=== PATIENT | female | born 1960 | race Two or more races ===

== ENCOUNTER 2016-03-30 06:35 | Emergency (ER) | payer OTHER ==
[~2016-03-30] VITALS: Ht 160 cm; Wt 116.0 kg
[~2016-03-30 06:35] MED LIST: AMLO-147 PO; CYCL-319 PO; ERGO500014 PO; IBUP-1542 PO; LIRA0.6P2 SQ; LISI20TA11 PO; MELO-110 PO; METF-382 PO; METO-448 PO; PANT40TA3 PO; TRAM-40 PO; ZOLP5TAB6 PO
[2016-03-30 06:36] VITALS: Ht 160 cm; Wt 116.0 kg
[2016-03-30] MEDS ORDERED: KETOROLAC 60 MG INJ IM STA (07:28)
[2016-03-30] MEDS ORDERED: HYDROCODONE/APAP (10/325) TAB PO ONE (07:30)
--- NOTE | 2016-03-30 08:44 | RADRPT ---
PROCEDURE: XR Hip. CLINICAL INDICATION: Bilateral hip pain TECHNIQUE: AP and frog lateral views of the bilateral hips were performed. Frontal view of the pel vis was also performed. COMPARISON: CT of the abdomen and pelvis dated August 29, 2015 FINDINGS: There is no radiographic evidence of acute fracture. Hip joint spaces are preserved. Limited evalu ation of the sacroiliac joints demonstrates mild degenerative changes. The soft tissues appear celso sly unremarkable. IMPRESSION: No radiographic evidence of acute osseous abnormality or significant degenerative changes of the hip s. RPTAT: UU .Jean-Paul Gamez MD, Date Time Electronically viewed and signed by .Jean-Paul Gamez MD, on 03/30/2016 08:43 .K/
[2016-03-30] MEDS ORDERED: IBUP800T25 PO (08:54)
[2016-03-30] MEDS ORDERED: HYDR-902 PO (08:54)
[2016-03-30] MEDS ORDERED: CYCL-319 PO (08:54)
--- NOTE | 2016-03-30 08:58 | ERD ---
ER Documentation Chief Complaint Date/Time DATE: 03/30/16 TIME: 08:55 Chief Complaint right hip pain rad leg x 10 days HPI Patient is a 35-year-old female who presents with right-sided hip pain that radiates to her right lower extremity she has had for 10 days. She takes tramadol at home and this helps a little bit temporarily however the pain comes back. She is ambulatory. Denies any numbness or tingling. She does have a history of sciatica and this feels similar. Denies any urinary symptoms. Denies fever. Denies any bowel or bladder incontinence. Denies saddle anesthesia. ROS All systems reviewed and are negative except as per history of present illness. Medications Home Meds Active Scripts Hydrocodone/Acetaminophen ([place] 10-325 Tablet) 1 Each Tablet, 1 TAB PO Q6H Y for PAIN, #20 TAB Prov:GARCIA العراقي PA-C 03/30/16 Ibuprofen* (Motrin*) 800 Mg Tab, 800 MG PO Q6H Y for PAIN AND OR ELEVATED TEMP, #30 TAB Prov:GARCIA العراقي PA-C 03/30/16 Cyclobenzaprine Hcl* (Cyclobenzaprine Hcl*) 10 Mg Tablet, 10 MG PO TID, #20 TAB Prov:GARCIA العراقي PA-C 03/30/16 Cyclobenzaprine Hcl* (Cyclobenzaprine Hcl*) 10 Mg Tablet, 10 MG PO TID for MUSCLE SPASMS, #15 TAB Prov:KARLY WITT MD 08/29/15 Ibuprofen* (Ibuprofen*) 600 Mg Tablet, 600 MG PO Q8 for PAIN AND/OR INFLAMMATION , #30 TAB Prov:KARLY WITT MD 08/29/15 Reported Medications Tramadol Hcl* (Ultram*) 50 Mg Tablet, 50 MG PO TID Y for PAIN, TAB 08/29/15 Meloxicam* (Mobic*) 15 Mg Tablet, 15 MG PO DAILY, #30 TAB 08/29/15 Liraglutide (Victoza 3-Darshan) 0.6 Mg/0.1 Ml Pen.injctr, 1.8 MG SQ DAILY, SYR 08/29/15 Pantoprazole* (Protonix*) 40 Mg Tablet.dr, 40 MG PO DAILY, TAB 08/29/15 Zolpidem Tartrate* (Zolpidem Tartrate*) 5 Mg Tablet, 5 MG PO QHS Y for INSOMNIA , #30 TAB 08/29/15 Ergocalciferol* (Drisdol* (Vitamin D2)) 50,000 Unit Capsule, 16418 UNIT PO Q7D, CAP 08/29/15 Lisinopril* (Lisinopril*) 20 Mg Tablet, 20 MG PO DAILY, #30 TAB 08/29/15 Amlodipine Besylate* (Amlodipine Besylate*) 10 Mg Tablet, 10 MG PO DAILY, #30 TAB 08/29/15 Metoprolol Tartrate* (Lopressor*) 25 Mg Tab, 25 MG PO BID, #60 TAB 08/29/15 Metformin Hcl* (Metformin Hcl*) 500 Mg Tablet, 500 MG PO WITH BREAKFAST DINNE, # 30 TAB 08/29/15 Allergies Allergies: Coded Allergies: Penicillins (Verified Allergy, Mild, RASH, 08/29/15) PMhx/Soc History of Surgery: Yes (Cholescystectomy) Anesthesia Reaction: No Hx Neurological Disorder: Yes Hx Respiratory Disorders: Yes Hx Cardiac Disorders: Yes Hx Psychiatric Problems: No Hx Miscellaneous Medical Probl: Yes (HTN, DM) Hx Alcohol Use: No Hx Substance Use: No Hx Tobacco Use: No Smoking Status: Never smoker FmHx Family History: No diabetes Physical Exam Vitals Vital Signs Date Time Temp Pulse Resp B/P Pulse Ox O2 Delivery O2 Flow Rate FiO2 03/30/16 06:36 97.8 77 18 149/84 99 Physical Exam General: well developed, well nourished, alert, nontoxic, no distress Head: normocephalic, atraumatic Neck: Supple, nontender, no lymphadenopathy, no midline tenderness Respiratory: Clear to auscaultation bilaterally, speaks in full sentences, no use of accesory muscles or labored breathing, no rales, ronchi, or wheezing Cardiovascular: RRR, No murmurs Back: no midline tenderness, no step offs or bony abnormalities, sensation to light touch in tact Extremities: moving all extremities normally, normal gait, no edema Results 24 hrs Current Medications Medications (Trade) Dose Ordered Sig/Morales Route PRN Reason Start Time Stop Time Status Last Admin Dose Admin Ketorolac Tromethamine (Toradol) 60 mg ONCE STAT IM 03/30/16 07:28 03/30/16 07:29 DC 03/30/16 07:40 Acetaminophen/ Hydrocodone Bitart ([place]ks (10/325)) 1 tab ONCE ONCE PO 03/30/16 07:30 03/30/16 07:31 DC 03/30/16 07:39 Procedures/MDM Patient is a 55-year-old female who presents with back and hip pain and radiates up her right lower extremity. She is ambulatory and neurovascular intact. She has no bowel or bladder incontinence or saddle anesthesia. She has had sciatica in the past and this most likely a flareup of sciatica. X-rays of the hips were unremarkable. She was given Toradol and Sparks with improvement of her symptoms and she was discharged with ibuprofen, Sparks, Flexeril, and copies of her radiology reports she did follow up with her primary care doctor. Recommended this patient follow up with her primary care doctor within 48 hours or return to the emergency room for any worsening of symptoms. However this time I do believe there is suitable for outpatient management. I answered all their questions and they agreed with the plan and were discharged home. Departure Diagnosis: Primary Impression: Sciatica Condition: Stable Patient Instructions: Understanding Sciatica, Back Pain W/ Sciatica Additional Instructions: Call your primary care doctor TOMORROW for an appointment during the next 1-2 days.See the doctor sooner or return here if your condition worsens before your appointment time. GARCIA العراقي PA-C Mar 30, 2016 08:58
[2016-03-30 09:20] VITALS: BP 132/78; PULSE 78; RESP 18; TEMP 98.3
== END 2016-03-30 09:29 | disposition home or self-care (01) ==
LOC: FTE 06:35
DX: M54.31 Sciatica, right side (principal); I10 Essential (primary) hypertension; E11.9 Type 2 diabetes mellitus without complications; Z79.84 Long term (current) use of oral hypoglycemic drugs
CPT/HCPCS: 73520; 96372; J1885; Z7502; Z7610

== ENCOUNTER 2016-10-23 05:48 | Emergency (ER) | payer OTHER ==
[~2016-10-23] VITALS: Ht 162.6 cm; Wt 110.5 kg
[~2016-10-23 05:48] MED LIST changes: +HYDR-902 PO; +IBUP800T25 PO; -METF-382 PO; +METF500T4 PO; -ZOLP5TAB6 PO; +ZOLP5TAB7 PO
[2016-10-23 05:52] VITALS: Ht 162.6 cm; Wt 110.5 kg
--- NOTE | 2016-10-23 06:28 | ERD ---
ER Documentation Chief Complaint Date/Time DATE: 10/23/16 TIME: 06:26 Chief Complaint painful urination x 1 day HPI 56 yo female with a history of diabetes, presents with painful urination and urgency for the past 1 day. She describes burning when she urinates, with intermittent hematuria. She has not had any fevers or chills, nausea, vomiting or flank pain. ROS All systems reviewed and are negative except as per history of present illness. Medications Home Meds Active Scripts Nitrofurantoin Monohyd Macrocr* (Macrobid*) 100 Mg Capsr, 100 MG PO BID for 7 Days, CAP Prov:DEVIN BARKSDALE PA-C 10/23/16 Hydrocodone/Acetaminophen ([place] 10-325 Tablet) 1 Each Tablet, 1 TAB PO Q6H Y for PAIN, #20 TAB Prov:GARCIA العراقي PA-C 03/30/16 Ibuprofen* (Motrin*) 800 Mg Tab, 800 MG PO Q6H Y for PAIN AND OR ELEVATED TEMP, #30 TAB Prov:GARCIA العراقي PA-C 03/30/16 Cyclobenzaprine Hcl* (Cyclobenzaprine Hcl*) 10 Mg Tablet, 10 MG PO TID, #20 TAB Prov:GARCIA العراقي PA-C 03/30/16 Cyclobenzaprine Hcl* (Cyclobenzaprine Hcl*) 10 Mg Tablet, 10 MG PO TID for MUSCLE SPASMS, #15 TAB Prov:KARLY WITT MD 08/29/15 Ibuprofen* (Ibuprofen*) 600 Mg Tablet, 600 MG PO Q8 for PAIN AND/OR INFLAMMATION , #30 TAB Prov:KARLY WITT MD 08/29/15 Reported Medications Tramadol Hcl* (Ultram*) 50 Mg Tablet, 50 MG PO TID Y for PAIN, TAB 08/29/15 Meloxicam* (Mobic*) 15 Mg Tablet, 15 MG PO DAILY, #30 TAB 08/29/15 Liraglutide (Victoza 3-Darshan) 0.6 Mg/0.1 Ml Pen.injctr, 1.8 MG SQ DAILY, SYR 08/29/15 Pantoprazole* (Protonix*) 40 Mg Tablet.dr, 40 MG PO DAILY, TAB 08/29/15 Zolpidem Tartrate* (Zolpidem Tartrate*) 5 Mg Tablet, 5 MG PO QHS Y for INSOMNIA , #30 TAB 08/29/15 Ergocalciferol* (Drisdol* (Vitamin D2)) 50,000 Unit Capsule, 32543 UNIT PO Q7D, CAP 08/29/15 Lisinopril* (Lisinopril*) 20 Mg Tablet, 20 MG PO DAILY, #30 TAB 08/29/15 Amlodipine Besylate* (Amlodipine Besylate*) 10 Mg Tablet, 10 MG PO DAILY, #30 TAB 08/29/15 Metoprolol Tartrate* (Lopressor*) 25 Mg Tab, 25 MG PO BID, #60 TAB 08/29/15 Metformin Hcl* (Metformin Hcl*) 500 Mg Tablet, 500 MG PO WITH BREAKFAST DINNE, # 30 TAB 08/29/15 Allergies Allergies: Coded Allergies: Penicillins (Verified Allergy, Mild, RASH, 08/29/15) PMhx/Soc History of Surgery: Yes (Cholescystectomy, APPY ) Anesthesia Reaction: No Hx Neurological Disorder: No Hx Respiratory Disorders: No Hx Cardiac Disorders: Yes (HTN ) Hx Psychiatric Problems: No Hx Miscellaneous Medical Probl: Yes (DM, KIDNEY STONES) Hx Alcohol Use: No Hx Substance Use: No Hx Tobacco Use: No Smoking Status: Never smoker Physical Exam Vitals Vital Signs Date Time Temp Pulse Resp B/P Pulse Ox O2 Delivery O2 Flow Rate FiO2 10/23/16 05:52 98.8 81 20 167/88 99 Physical Exam \General: Well-developed, well-nourished. The patient appears in no acute distress. HEENT: Head is normocephalic, atraumatic. No scleral icterus. Neck: Supple. Nontender. Lungs: Clear to auscultation. Normal air movement. Heart: Regular rate and rhythm. S1 and S2 are normal. No murmurs, gallops, or rubs. Abdomen: Nondistended. Soft nontender, no CVA tenderness Extremities: No clubbing or cyanosis. Moving extremities x 4. No weakness. Neurologic: Alert and oriented 3. No focal deficits. Normal speech and gait. Skin: Normal turgor. No rash or lesions. Results 24 hrs Laboratory Tests Test 10/23/16 06:38 Bedside Urine pH (LAB) 5.5 Bedside Urine Protein (LAB) 3+ Bedside Urine Glucose (UA) 0.50% Bedside Urine Ketones (LAB) Negative Bedside Urine Blood 3+ Bedside Urine Nitrite (LAB) Positive Bedside Urine Leukocyte Esterase (L 1+ Procedures/MDM MDM: 56-year-old female history of type 2 diabetes presents with a urinary tract infection. She does not have any systemic complaints, history that indicates kidney stones, pyelonephritis, or septic kidney stones. Patient's vitals are stable, and she is able to be discharged on p.o. antibiotics. Glucosuria present, no evidence of ketonuria, hence DKA, blood sugar is 242. Patient's blood pressure was elevated (>120/80) but appears stable without evidence of hypertension emergency or urgency. The patient was counseled about the risks of hypertension and urged to pursue outpatient monitoring and therapy within a week with their primary care physician. Departure Diagnosis: Primary Impression: UTI (urinary tract infection) Additional Impression: Diabetes type 2, uncontrolled Condition: DEVIN Mcgrath PA-C Oct 23, 2016 06:28
[2016-10-23 06:31] LABS: URINE BLOOD (Dip) POC 3+ (NEGATIVE)
[2016-10-23] MEDS ORDERED: NITR-58 PO (06:45)
== END 2016-10-23 06:59 | disposition home or self-care (01) ==
LOC: FTE 05:48
DX: N39.0 Urinary tract infection, site not specified (principal); E11.9 Type 2 diabetes mellitus without complications; I10 Essential (primary) hypertension; Z79.84 Long term (current) use of oral hypoglycemic drugs
CPT/HCPCS: 81003; 82962; Z7502; 99283

== ENCOUNTER 2017-07-18 12:45 | Day surgery (SDC) | END 2017-07-18 16:17 | disposition home or self-care (01) ==

== ENCOUNTER 2017-11-10 20:00 | Observation (INO) | END 2017-11-12 15:16 | disposition home or self-care (01) ==

== ENCOUNTER 2017-12-15 06:19 | Emergency (ER) | END 2017-12-15 08:19 | disposition home or self-care (01) ==

== ENCOUNTER 2018-07-22 08:13 | Inpatient (IN) | payer OTHER ==
[2018-07-22] VITALS (23 sets, daily range): BP systolic 128–183; BP diastolic 61–83; PULSE 0–100; RESP 16–22; Ht 165.1 cm; Wt 105.7 kg
[~2018-07-22] VITALS: Ht 165.1 cm; Wt 105.7 kg
[~2018-07-22 08:13] MED LIST changes: +ACETAMINOPHEN 500 MG TAB PO ONE; -AMLO-147 PO; +CEFAZOLIN 1 GM INJ ONE; -CYCL-319 PO; +DESFLURANE 15 MIN ONE; +DEXAMETHASONE 4 MG/ML 1 ML INJ IV ONE; +DEXAMETHASONE 4 MG/ML 5 ML INJ ONE; -ERGO500014 PO; +FENTAnyl 50 MCG/ML VIAL ONE; +GLYCOPYRROLATE 0.4 MG INJ ONE; +HIP PAIN COCKTAIL VANCO INJ SCH; -HYDR-902 PO; -IBUP-1542 PO; -IBUP800T25 PO; +LACTATED RINGER'S 1,000 ML IV SCH; +LANSOPRAZOLE 30 MG CAP PO ONE; -LIRA0.6P2 SQ; -LISI20TA11 PO; -MELO-110 PO; -METF500T4 PO; -METO-448 PO; +MIDAZOLAM 1 MG/ML 2 ML INJ ONE; +NEOSTIGMINE 3 MG/3 ML SYRINGE ONE; +ONDANSETRON 4 MG INJ IV ONE; +ONDANSETRON 4 MG INJ ONE; -PANT40TA3 PO; +PROPOFOL 20 ML ONE; +ROCURONIUM 50 MG INJ ONE; +ROPIVACAINE 0.5 % 30 ML VIAL ONE; -TRAM-40 PO; +TRANEXAMIC ACID 1 GM/100 ML (PMX) ONE; +TRANEXAMIC ACID 1GM/100ML(PMX) 100 ML INTRA-OP X1 IVPB ONE; +TRANEXAMIC ACID 1GM/100ML(PMX) 100 ML PRE-OP X1 IVPB ONE; +VANCOMYCIN 1 GM (PMX) 250 ML IVPB ONE; -ZOLP5TAB7 PO; +morphine SULFATE/PF (10 MG/10 ML) INJ ONE; +oxyCODONE (CR) 10 MG TAB [oxyCONTIN] PO ONE
[2018-07-22] MEDS ORDERED: LISI40TA3 PO (08:44)
[2018-07-22] MEDS ORDERED: METO-448 PO (08:45)
[2018-07-22] MEDS ORDERED: METF100010 PO (08:45)
[2018-07-22] MEDS ORDERED: SITA100T11 PO (08:46)
[2018-07-22] MEDS ORDERED: GLIM4TAB PO (08:46)
[2018-07-22] MEDS ORDERED: CLON-379 PO (08:47)
[2018-07-22] MEDS ORDERED: ICOS1CAP PO (08:47)
[2018-07-22] MEDS ORDERED: HYDR-3672 PO (08:48)
[2018-07-22] MEDS ORDERED: ERGO2000 PO (08:48)
[2018-07-22] MEDS ORDERED: MAGN400T27 PO (08:49)
[2018-07-22] MEDS ORDERED: ACCU-CHEK XX ONE (09:00)
[2018-07-22] MEDS ORDERED: INSULIN ASPART [NOVOLOG] 3 ML PEN SC ONE (09:00)
[2018-07-22] MEDS ORDERED: ACETAMINOPHEN 1000MG/100ML IV 100 ML IVPB SCH (09:30)
[2018-07-22] MEDS ORDERED: BACITRACIN 50000 UNITS INJ ONE (09:50)
[2018-07-22] MEDS ORDERED: POLYMYXIN B 500000 UNIT INJ ONE (09:56)
[2018-07-22] MEDS ORDERED: HIP PAIN COCKTAIL VANCO INJ SCH ×7 (10:00)
--- NOTE | 2018-07-22 10:09 | HPN ---
Date/Time of Note Date/Time of Note DATE: 07/22/18 TIME: 10:09 Interval H&P Admission Note Pt. seen H&P reviewed: No system changes DANUTA ROSADO MD July 22, 2018 10:09
--- NOTE | 2018-07-22 10:42 | PREAC ---
Date/Time of Note Date/Time of Note DATE: 07/22/18 TIME: 10:41 Anesthesia Eval and Record Evaluation Time Pre-Procedure Interview DATE: 07/22/18 TIME: 10:41 Age 58 Sex female NPO: 8 hrs Preoperative diagnosis LEFT KNEE OA Planned procedure LEFT TKA Past Medical History Past Medical History: Includes Cardio: HTN, Dyslipidemia Endo: Diabetes GI: Obesity Surgery & Anesthesia Issues No known issue Meds Anticoagulation: No Beta Willian within 24 hr: Yes Reported Medications Magnesium Oxide* (Mag-Oxide*) 400 Mg Tablet, 400 MG PO BID, TAB 07/22/18 Hydralazine Hcl* (Hydralazine Hcl*) 50 Mg Tab, 50 MG PO BID PRN for BLOOD PRESSURE SUPPORT, #60 TAB 07/22/18 Ergocalciferol (Vitamin D2) (VITAMIN D2) 2,000 Unit Tablet, 2000 UNIT PO DAILY, TAB 07/22/18 Icosapent Ethyl (VASCEPA) 1 Gm Capsule, 2 GM PO BID, CAP 07/22/18 Clonidine Hcl* (Clonidine Hcl*) 0.1 Mg Tab, 0.1 MG PO DAILY PRN for BLOOD PRESSURE SUPPORT, TAB 07/22/18 Sitagliptin* (Januvia*) 100 Mg Tablet, 100 MG PO DAILY, #30 TAB 07/22/18 Glimepiride* (Glimepiride*) 4 Mg Tablet, 4 MG PO WITH BREAKFAST DINNE, TAB 07/22/18 Metoprolol Tartrate* (Lopressor*) 25 Mg Tab, 25 MG PO BID, #60 TAB 07/22/18 Metformin Hcl* (Metformin Hcl*) 1,000 Mg Tablet, 1000 MG PO WITH BREAKFAST DINNE, #60 TAB 07/22/18 Lisinopril* (Lisinopril*) 40 Mg Tablet, 40 MG PO DAILY, #30 TAB 07/22/18 Discontinued Reported Medications Tramadol Hcl* (Ultram*) 50 Mg Tablet, 50 MG PO BID PRN for PAIN, TAB 11/10/17 Metformin Hcl* (Metformin Hcl*) 1,000 Mg Tablet, 1000 MG PO WITH BREAKFAST DINNE, #60 TAB 11/10/17 Amlodipine Besylate* (Norvasc*) Unknown Strength Tablet, 1 TAB PO DAILY, TAB 11/10/17 Omeprazole* (Omeprazole*) 20 Mg Capsule.dr, 20 MG PO DAILY, #30 CAP 11/10/17 Metoprolol Tartrate* (Lopressor*) Unknown Strength Tab, 1 TAB PO BID, #60 TAB 11/10/17 Diclofenac Sodium* (Voltaren* XR) 100 Mg Tab.sr.24h, 100 MG PO DAILY, TAB.SA 11/10/17 Glimepiride* (Glimepiride*) 4 Mg Tablet, 4 MG PO QHS, TAB 11/10/17 Sitagliptin* (Januvia*) 100 Mg Tablet, 100 MG PO DAILY, #30 TAB 11/10/17 Discontinued Scripts Cyclobenzaprine Hcl* (Cyclobenzaprine Hcl*) 10 Mg Tablet, 10 MG PO QHS, #7 TAB Prov:ROMAINE CLAUDIO PA-C 12/15/17 Lisinopril* (Lisinopril*) 40 Mg Tablet, 40 MG PO DAILY, #60 TAB Prov:MADISYN JAMES 11/12/17 Current Medications Ropivacaine/ Morphine Sulfate/ Clonidine/ Epinephrine/ Ketorolac Tromethamine/ Vancomycin HCl/ Sodium Chloride INTRA-OP INJ ; Start 07/22/18 at 10:00; Stop 07/22/18 at 23:00 Lactated Ringer's 1,000 ml @ 125 mls/hr Q8H IV Last administered on 07/22/18at 09:14; Admin Dose 125 MLS/HR; Start 07/22/18 at 07:00; Stop 07/22/18 at 14:59 Meds reviewed: Yes Allergies Coded Allergies: Penicillins (Verified Allergy, Mild, RASH, 07/22/18) Allergies Reviewed: Yes Labs/Studies Labs Reviewed: Reviewed by anesthesiologist test: N/A Studies: ECG (NL), CXR (NAPD) Pre-procedure Exam Airway: Adequate mouth opening, Adequate thyromental dist Mallampati: Mallampati II Teeth: Normal Lung: Normal Heart: Normal ASA Physical Status ASA physical status: 2 Emergency: None Planned Anesthetic General/MAC: ETT Neuraxial: Spinal Nerve block: Femoral (left) Planned Pain Management Sub-arachniod narcotics, Single shot nerve block, Parenteral pain med Pre-operative Attestations Prior to commencing anesthesia and surgery, the patient was re-evaluated, there was verification of: *The patient's identity *The results of appropriate recent lab work and preoperative vital signs *The above evaluation not changing prior to induction *Anesthetic plan, risk benefits, alternative and complications discussed with patient/family; questions answered; patient/family understands, accepts and wishes to proceed. Miguel Andres M.D. July 22, 2018 10:42
[2018-07-22] MEDS ORDERED: PROVENTIL HFA 6.7GM INHALER ONE (11:38)
[2018-07-22] MEDS ORDERED: TRANEXAMIC ACID 1GM/100ML(PMX) 100 ML ONE (12:21)
--- NOTE | 2018-07-22 13:13 | SIPON ---
Date/Time of Note Date/Time of Note DATE: 07/22/18 TIME: 13:12 Operative Report Preoperative Diagnosis Left Knee Osteoarthritis Postoperative Diagnosis Same Operation/Procedure Performed Left Total Knee Arthroplasty Surgeon Dana Rosado MD events and promotions assistant Rodrick Larose Second assist: JONO RAMIRES Anesthesia: spinal Estimated blood loss: other Transfusion Required none Specimen bone Grafts/Implants none Complications none DANA ROSADO MD July 22, 2018 13:13
[2018-07-22] MEDS ORDERED: SUGAMMADEX SODIUM 200 MG/2 ML VIAL IV ONE (13:20)
[2018-07-22] MEDS ORDERED: DOCUSATE SODIUM 100 MG CAP PO ONE (13:30)
[2018-07-22] MEDS ORDERED: CEFAZOLIN 2 GM/50 ML (PMX) 50 ML IVPB SCH (13:30)
[2018-07-22] MEDS ORDERED: NALOXONE (0.4 MG/ML) INJ IV PRN (13:30)
[2018-07-22] MEDS ORDERED: NACL 0.9% 3 ML SYG IV SCH (13:30)
--- NOTE | 2018-07-22 13:46 | PAC ---
Date/Time of Note Date/Time of Note DATE: 07/22/18 TIME: 13:46 Post-Anesthesia Notes Post-Anesthesia Note Last documented vital signs HR;76N RR;14 BP;114/76 T;98.6 Activity: WNL Respiratory function: WNL Cardiovascular function: WNL Mental status: Baseline Pain reasonably controlled: Yes Hydration appropriate: Yes Nausea/Vomiting absent: Yes Miguel Andres M.D. July 22, 2018 13:46
--- NOTE | 2018-07-22 14:04 | OPR ---
Date/Time of Note Date/Time of Note DATE: 07/22/18 TIME: 14:02 Operative Report Free Text/Dictation DATE OF OPERATION: July 22, 2018 SURGEON: Danuta Rosado MD STEEL DIE ENGRAVER: Rodrick HIDALGO STEEL DIE ENGRAVER: GISSELL Quiñonez PREOPERATIVE DIAGNOSIS: Left knee osteoarthritis. POSTOPERATIVE DIAGNOSIS: Left knee osteoarthritis. PROCEDURES PERFORMED: Left total knee arthroplasty, CPT code 82343. ANESTHESIOLOGIST: Dr. Andres ANESTHESIA: Spinal. ESTIMATED BLOOD LOSS: 300 mL. COMPLICATIONS: None. SPECIMENS: Resected bone. DISPOSITION: PACU in stable condition. TOURNIQUET TIME: 48 minutes at 250 mmHg. IMPLANT USED: Fair and Nephew size 3 Azra tibial baseplate with 12 x 100 mm stem, size 5 posterior stabilized Oxinium femur, size 11 high flexion polyethylene, size 29 mm patella. INDICATION FOR PROCEDURE: This is an 58-year-old female with end-stage osteoarthritis of the left knee who had failed nonoperative management. Risks, benefits, alternatives of surgical intervention were discussed with the patient and informed consent was obtained. The risks of surgery include but are not limited to infection, deep venous thrombosis, pulmonary embolism, damage to nerves and blood vessels, numbness around incision site, stiffness of knee, need for total knee manipulation under anesthesia, need for blood transfuion, heart attack, stroke, risks associated with anesthesia, implant loosening, wear of prosthesis, need for revision surgery, and . DESCRIPTION OF PROCEDURE: The patient was met in the preoperative suite. The correct operative site was confirmed and marked. The patient was then brought into operating room. After induction of anesthesia, the patient was placed in the supine position on the operating room table. A tourniquet was applied to left upper thigh. The left lower extremity was prepped and draped in the usual sterile fashion. Before starting, a timeout was taken to identify the correct operative site and confirm preoperative antibiotics consisting of 1 g of IV Ancef, along with 1 g of tranexamic acid were administered. At this point, the left leg was elevated and exsanguinated with an Esmarch and tourniquet was then insufflated for the above noted time. A midline incision was made and median parapatellar arthrotomy was then completed. The lateral patellar retinacular ligaments were released. A sleeve of tissue was released from the medial proximal tibia. The cruciate ligaments and the menisci were then excised. At this point, the custom distal femur cutting block was then pinned and 9.5 mm was resected from the distal femur. The 4-in-1 cutting block, size 5 was then placed. An nash wing was used to confirm that notching of the anterior cortex of the femur would not occur. The anterior and posterior condylar cuts were completed followed by the anterior and posterior chamfer cuts. The osteophytes were then removed with a rongeur. At this point, the tibia was subluxed anteriorly. Appropriate retractors were placed. The custom tibial cutting block was then pinned. The drop salima was used to ensure the correct alignment. Approximately 11 mm was resected off the lateral tibial plateau and 6 mm off the medial tibial plateau. Osteophytes were then removed. At this point, the flexion extension gaps were checked with a 9 mm gap unloading checker and noted to be loose in both. Next, trial 5 femur was then pinned and the box cut was then completed. The tibia was then subluxed anteriorly and measured to size 3. The tibial tray was then pinned and a keel was then punched. The trial components were placed with a 11 mm polyethylene and noted to have full extension and greater than 120 degrees of flexion. The patella was then subluxed laterally and sized to 22 mm. Approximately, 8 mm was resected. The patellar button was sized to 29 mm. The button was placed and noted to have excellent patellar tracking. The trial components were removed. Due to the patient's BMI, reaming was performed for tibial stem. All bony surfaces were pulse lavaged and dried. The appropriate size components were then cemented and the knee was held in extension with a 11 mm trial polyethylene until the cement cured. Once the cement had cured, the trial polyethylene was removed and the appropriate size polyethylene was then placed. The tranexamic acid was redosed. The cocktail was then injected. The extensor mechanism was closed using #1 Stratafix and the subcutaneous tissue with 2-0 Vicryl and the skin with 4-0 Monocryl. Steri-Strips were applied along with a sterile dressing. There were no complications. The patient was transferred to PACU in stable condition. POSTOPERATIVE CARE: The patient will be weightbearing as tolerated. The patient will work with physical therapy, and will receive two additional doses of IV antibiotics along with aspirin 81 mg p.o. b.i.d. for 6 weeks. Upon discharge, patient will follow up in my office within 2 weeks postoperatively. DANUTA ROSADO MD July 22, 2018 14:04
[2018-07-22] MEDS: ONDANSETRON 4 MG INJ IV SCH ×2 (14:18→21:00)
[2018-07-22] MEDS ORDERED: GLUCOSE GEL 15 GRAM TUBE BUCCAL PRN (14:30)
[2018-07-22] MEDS ORDERED: hydrALAzine 20 MG INJ IV PRN (14:30)
[2018-07-22] MEDS ORDERED: DEXTROSE 50% 50 ML SYRINGE IV PRN ×2 (14:30)
[2018-07-22] MEDS ORDERED: GLUCAGON 1 MG INJ IM PRN (14:30)
[2018-07-22] MEDS ORDERED: GLUCOSE GEL 15 GRAM TUBE PO PRN ×2 (14:30)
--- NOTE | 2018-07-22 14:55 | CONS ---
DATE OF ADMISSION: 07/22/2018 DATE OF CONSULTATION: 07/22/2018 INDICATION FOR CONSULTATION: Medical management. HISTORY OF PRESENTING COMPLAINT: A 58-year-old female with past medical history of hypertension, cristian betes, morbid obesity and obstructive sleep apnea, who was brought in for elective left total knee ar throplasty for chronic osteoarthritis. The patient underwent procedure without complications. Per m y understanding, she did very well and postoperative care recommendations per ortho weightbearing as tolerated, physical therapy and 2 additional days of IV antibiotics and aspirin 81 b.i.d. for DVT pro phylaxis for 6 weeks and 2 weeks postoperative followup with ortho. At time of my evaluation, she is very lethargic from anesthesia and so she is unable to participate in history-taking, but she is abl e to weakly say that she is doing well and has no postoperative pain. She also confirmed that she wa s in her normal state of health prior to surgery. REVIEW OF SYSTEMS: As per HPI. PAST MEDICAL HISTORY: As per HPI. PAST SURGICAL HISTORY: She also has a right total hip hemiarthroplasty done in the past. She also h ad appendectomy, cholecystectomy and surgery to the eye. ALLERGIES: PENICILLIN. SOCIAL HISTORY: Denies tobacco, alcohol or illicit drug use. HOME MEDICATIONS: Reviewed and reconciled. PHYSICAL EXAMINATION VITAL SIGNS: Temperature 98.0, pulse 94, respirations 16, blood pressure is 150/76, saturation 96% o n oxygen via nasal cannula 2 liters a minute. GENERAL: Obese female, lethargic, currently in no distress, arousable, participates in physical exam ination and history-taking. HEENT: Head is normocephalic. Pupils are equal and reactive. Mucous membranes are moist. Posterio r pharynx is clear of erythema and exudate. NECK: Supple without JVD. CHEST: With diminished breath sounds were clear. CARDIOVASCULAR: S1 and S2. No tachycardia, no murmurs. ABDOMEN: Obese, soft, does not seem overtly tender. Normoactive bowel sounds. EXTREMITIES: Lower extremities: Left knee is encased in a splint from the mid thigh all the way to just above her ankle. Feet are nonedematous. Right lower extremity has old healed surgical scar on her right knee. No lower extremity edema as well. There is some fullness around the ankle. SKIN: Otherwise, devoid of any lesions. PSYCHIATRIC: Lethargic, but cooperative on exam. LABORATORY VALUES: Serum glucose is between 178 and 93. No other lab values to check at this time. I reviewed the preoperative cardiology notes. ASSESSMENT AND PLAN: A 58-year-old female who was brought in for elective left total knee arthroplas ty due to severe osteoarthritis for whom we are consulted for management of her medical problems. 1. Hypertension: Suboptimal control but in view of fact that patient just got multiple medications from surgery, we will use p.r.n. hydralazine only for now, resume home antihypertensives in the [facility] and titrate as indicated. 2. Diabetes mellitus. I recommend calorie controlled diet, sliding scale, hold home glimepiride for now. Treat with Lantus and see how she does. 3. History of dyslipidemia. Continue home statin. 4. Chronic obstructive sleep apnea. P.r.n. BiPAP. 5. Morbid obesity. Calorie controlled diet. 6. Deep venous thrombosis prophylaxis. The patient is on aspirin b.i.d. per ortho and Protonix for gastrointestinal prophylaxis. Thank you for the consult. We will continue to follow with you. Time of assessment has been about noon. Dictated By: KEYON DAWKINS MD BA/NTS Conf#: [id number] DID#: [id number] CC: DANUTA ROSADO MD;*EndCC*
[2018-07-22] MEDS: ACCU-CHEK XX SCH ×2 (17:47→21:00)
[2018-07-22] MEDS: metFORMIN 500 MG TAB PO SCH (18:16)
[2018-07-22] MEDS: INSULIN ASPART [NOVOLOG] 3 ML PEN SC SCH ×2 (18:18→21:26)
[2018-07-22] MEDS: GABAPENTIN 100 MG CAP PO SCH (21:00)
[2018-07-22] MEDS: MAGNESIUM OXIDE 400 MG TAB PO SCH (21:00)
[2018-07-22] MEDS ORDERED: FISH OIL 1,000 MG CAP PO SCH (21:00)
[2018-07-22] MEDS: INSULIN GLARGINE [LANTus] (100 UNITS/ML) SYG SC SCH (21:08)
[2018-07-22] MEDS: METOPROLOL 25 MG TAB PO SCH (21:21)
[2018-07-22] MEDS: VANCOMYCIN 1 GM (PMX) 250 ML IVPB SCH (21:28)
[2018-07-23 00:31] VITALS: BP 115/56; PULSE 90; RESP 18
[2018-07-23] MEDS: ONDANSETRON 4 MG INJ IV SCH ×2 (01:30→08:59)
[2018-07-23] MEDS: ACCU-CHEK XX SCH ×5 (02:00→21:00)
[2018-07-23 07:51] VITALS: BP 107/56; PULSE 67; RESP 18
[2018-07-23] MEDS: INSULIN ASPART [NOVOLOG] 3 ML PEN SC SCH ×4 (08:58→21:38)
[2018-07-23] MEDS: CHOLECALCIFEROL 2,000 UNIT CAP PO SCH (08:59)
[2018-07-23] MEDS: VANCOMYCIN 1 GM (PMX) 250 ML IVPB SCH (08:59)
[2018-07-23] MEDS: MAGNESIUM OXIDE 400 MG TAB PO SCH ×2 (09:00→21:10)
[2018-07-23] MEDS: LINAGLIPTIN 5 MG TABLET PO SCH (09:00)
[2018-07-23] MEDS: CELECOXIB 100 MG CAP PO SCH ×2 (09:00→21:08)
[2018-07-23] MEDS: GABAPENTIN 100 MG CAP PO SCH ×3 (09:00→21:08)
[2018-07-23] MEDS: FISH OIL 1,000 MG CAP PO SCH ×2 (09:00→21:00)
[2018-07-23] MEDS: ASPIRIN (EC) 81 MG TAB PO SCH ×2 (09:00→21:08)
[2018-07-23] MEDS: METOPROLOL 25 MG TAB PO SCH ×2 (09:08→21:10)
[2018-07-23] MEDS: metFORMIN 500 MG TAB PO SCH ×2 (09:08→17:50)
[2018-07-23] MEDS: LISINOPRIL 20 MG TAB PO SCH (09:08)
[2018-07-23] MEDS: KETOROLAC 15 MG INJ IV PRN ×3 (09:19→21:31)
[2018-07-23] MEDS: HYDROCODONE/APAP (5/325) TAB PO PRN ×2 (12:04→17:51)
[2018-07-23 14:50] VITALS: BP 115/58; PULSE 80; RESP 18
[2018-07-23 19:55] VITALS: BP 132/60; PULSE 77; RESP 20
[2018-07-23] MEDS: INSULIN GLARGINE [LANTus] (100 UNITS/ML) SYG SC SCH (21:38)
[2018-07-24] MEDS: HYDROCODONE/APAP (5/325) TAB PO PRN ×3 (01:32→14:08)
[2018-07-24] MEDS: ACCU-CHEK XX SCH ×9 (02:00→21:00)
[2018-07-24 02:21] VITALS: BP 128/65; PULSE 78; RESP 17
--- NOTE | 2018-07-24 06:33 | EN ---
Date/Time of Note Date/Time of Note DATE: 07/23/18 TIME: 15:00 Event Note Medicine Medicine Event Note LATE PROGRESS NOTE DATE OF SERVICE: 07/23/18 SUBJECTIVE: no new complaints, still with pain at op site VS - Last 72 Hours, by Label Date Temp Pulse Resp B/P (MAP) Pulse Ox O2 O2 Flow FiO2 Time Delivery Rate 07/23/18 98.2 80 18 115/58 90 14:50 (77) 07/23/18 98.2 67 18 107/56 98 Room Air 07:51 (73) 07/23/18 98.5 90 18 115/56 95 00:31 (75) 07/22/18 97.9 94 18 141/75 94 20:30 (97) 07/22/18 98.1 96 18 147/69 96 Nasal 2.0 17:45 (95) Cannula 07/22/18 98.1 93 18 146/69 96 Nasal 2.0 16:45 (94) Cannula 07/22/18 98.1 92 18 142/67 93 Nasal 2.0 16:15 (92) Cannula 07/22/18 98.1 93 17 128/61 96 Nasal 2.0 15:45 (83) Cannula 07/22/18 98.1 91 20 153/70 94 Nasal 2.0 15:30 (97) Cannula 07/22/18 98.1 93 20 146/69 97 Nasal 2.0 15:15 (94) Cannula 07/22/18 98.1 91 20 158/72 94 Nasal 2.0 15:00 (100) Cannula 07/22/18 98.2 80 22 135/70 95 Nasal 2.0 14:40 (91) Cannula 07/22/18 88 16 139/72 98 Nasal 2.0 14:35 (94) Cannula 07/22/18 88 21 138/80 95 Nasal 2.0 14:30 (99) Cannula 07/22/18 88 21 142/66 95 Nasal 2.0 14:25 (91) Cannula 07/22/18 88 20 141/80 99 Nasal 2.0 14:20 (100) Cannula 07/22/18 90 18 140/70 97 Nasal 2.0 14:15 (93) Cannula 07/22/18 90 18 132/77 97 Nasal 2.0 14:10 (95) Cannula 07/22/18 90 18 140/77 97 Nasal 2.0 14:05 (98) Cannula 07/22/18 90 18 142/75 96 Nasal 2.0 14:00 (97) Cannula 07/22/18 70 22 160/83 94 Nasal 2.0 13:55 (108) Cannula 07/22/18 0 19 161/82 96 Nasal 2.0 13:50 (108) Cannula 07/22/18 98.0 13:48 07/22/18 94 16 150/76 96 Nasal 13:45 (100) Cannula 07/22/18 96 16 159/78 96 Nasal 13:41 (105) Cannula 07/22/18 100 18 165/75 96 Nasal 13:35 (105) Cannula 07/22/18 98.3 89 183/80 13:32 (114) GENERAL: Obese female, , currently in no distress, CHEST: With diminished breath sounds were clear. CARDIOVASCULAR: S1 and S2. No tachycardia, no murmurs. ABDOMEN: Obese, soft, does not seem overtly tender. Normoactive bowel sounds. EXTREMITIES: Lower extremities: Left knee is encased in a splint from the mid thigh all the way to just above her ankle. Feet are nonedematous. Right lower extremity has old healed surgical scar on her right knee. No lower extremity edema as well. There is some fullness around the ankle. PSYCHIATRIC: cooperative on exam. LABS AND IMAGING: reviewed ASSESSMENT: A 58-year-old female who was brought in for elective left total knee arthroplasty due to severe osteoarthritis for whom we are consulted for management of her medical problems. 1. Hypertension: excellent BP control on home meds 2. Diabetes mellitus. : control suboptimal even with lantus, add premeal prandin and check a1c 3. History of dyslipidemia. Continue home statin. 4. Chronic obstructive sleep apnea. P.r.n. BiPAP. 5. Morbid obesity. Calorie controlled diet. 6. Deep venous thrombosis prophylaxis. The patient is on aspirin b.i.d. per ortho and Protonix for gastrointestinal prophylaxis. Thanks for the Consult. We will follow with you. KEYON DAWKINS July 24, 2018 06:33
[2018-07-24 07:10] VITALS: BP 146/67; PULSE 83; RESP 18
[2018-07-24] MEDS: PANTOPRAZOLE (EC) 40 MG TAB PO SCH (08:11)
[2018-07-24] MEDS: MAGNESIUM OXIDE 400 MG TAB PO SCH ×2 (08:15→21:48)
[2018-07-24] MEDS: ASPIRIN (EC) 81 MG TAB PO SCH ×2 (08:16→21:47)
[2018-07-24] MEDS: LISINOPRIL 20 MG TAB PO SCH (08:16)
[2018-07-24] MEDS: GABAPENTIN 100 MG CAP PO SCH ×3 (08:16→21:48)
[2018-07-24] MEDS: CHOLECALCIFEROL 2,000 UNIT CAP PO SCH (08:16)
[2018-07-24] MEDS: CELECOXIB 100 MG CAP PO SCH ×2 (08:16→21:47)
[2018-07-24] MEDS: METOPROLOL 25 MG TAB PO SCH ×2 (08:17→21:48)
[2018-07-24] MEDS: FISH OIL 1,000 MG CAP PO SCH ×2 (08:17→21:00)
[2018-07-24] MEDS: metFORMIN 500 MG TAB PO SCH ×2 (08:42→17:53)
[2018-07-24] MEDS: LINAGLIPTIN 5 MG TABLET PO SCH (08:42)
[2018-07-24] MEDS: INSULIN ASPART [NOVOLOG] 3 ML PEN SC SCH ×4 (08:44→21:56)
[2018-07-24] MEDS: REPAGLINIDE 1 MG TAB PO SCH ×3 (09:19→17:53)
[2018-07-24] MEDS: KETOROLAC 15 MG INJ IV PRN (12:34)
[2018-07-24 14:00] VITALS: BP 139/71; PULSE 93; RESP 18
--- NOTE | 2018-07-24 14:45 | PN ---
Date/Time of Note Date/Time of Note DATE: 07/24/18 TIME: 14:43 Assessment/Plan VTE Prophylaxis Risk score (from Ns)>0 risk: 8 SCD applied (from Ns): Yes Pharmacological prophylaxis: other Pharm contraindication: other (bid per ortho) Lines/Catheters IV Catheter Type (from Nrs): Saline Lock Urinary Cath still in place: No Assessment/Plan Hospital Course S: wants to know d/c plan: GENERAL: Obese female, , currently in no distress, CHEST: With diminished breath sounds were clear. CARDIOVASCULAR: S1 and S2. No tachycardia, no murmurs. ABDOMEN: Obese, soft, does not seem overtly tender. Normoactive bowel sounds. EXTREMITIES: Lower extremities: Left knee is encased in a splint from the mid thigh all the way to just above her ankle. Feet are nonedematous. Right lower extremity has old healed surgical scar on her right knee. No lower extremity edema as well. There is some fullness around the ankle. PSYCHIATRIC: cooperative on exam. LABS AND IMAGING: reviewed ASSESSMENT: A 58-year-old female who was brought in for elective left total knee arthroplasty due to severe osteoarthritis for whom we are consulted for management of her medical problems. 1. Hypertension: excellent BP control on home meds 2. Diabetes mellitus. : a1c 8.2, will add lantus to regimen at discharge 3. History of dyslipidemia. Continue home statin. 4. Chronic obstructive sleep apnea. P.r.n. BiPAP. 5. Morbid obesity. Calorie controlled diet. 6. Deep venous thrombosis prophylaxis. The patient is on aspirin b.i.d. per ortho and Protonix for gastrointestinal prophylaxis. Medically cleared for d/c home with or SNF for rehab depending on the insurance. Thanks for the Consult. We will follow with you. Result Diagram: 07/24/18 0430 07/24/18 043 Results 24hrs Laboratory Tests Test 07/23/18 17:50 07/23/18 21:30 07/24/18 02:37 07/24/18 04:26 Bedside Glucose 181 264 H 228 H Hemoglobin A1c 8.2 H Test 07/24/18 04:30 07/24/18 08:41 07/24/18 12:28 White Blood Count 5.7 Red Blood Count 3.06 L Hemoglobin 9.4 L Hematocrit 28.3 L Mean Corpuscular 92.5 Volume Mean Corpuscular 30.7 Hemoglobin Mean Corpuscular 33.2 Hemoglobin Concent Red Cell 13.2 Distribution Width Platelet Count 148 Mean Platelet Volume 10.9 H Immature 0.200 Granulocytes % Neutrophils % 58.5 Lymphocytes % 29.8 Monocytes % 10.0 Eosinophils % 1.1 Basophils % 0.4 Nucleated Red Blood 0.0 Cells % Immature 0.010 Granulocytes # Neutrophils # 3.3 Lymphocytes # 1.7 Monocytes # 0.6 Eosinophils # 0.1 Basophils # 0.0 Nucleated Red Blood 0.0 Cells # Sodium Level 138 Potassium Level 4.8 Chloride Level 105 Carbon Dioxide Level 27 Anion Gap 6 Blood Urea Nitrogen 36 H Creatinine 1.01 H Est Glomerular 56 L Filtrat Rate mL/min Glucose Level 177 Calcium Level 8.4 Bedside Glucose 143 201 Exam/Review of Systems Exam Vitals Vital Signs Date Temp Pulse Resp B/P (MAP) Pulse Ox O2 O2 Flow FiO2 Time Delivery Rate 07/24/18 98.0 93 18 139/71 96 14:00 (93) 07/23/18 Room Air 07:51 07/22/18 2.0 17:45 Intake and Output 07/23/18 07/23/18 07/24/18 1515:00 23:00 07:00 IntakeIntake Total 450 ml 200 ml BalanceBalance 450 ml 200 ml Results Results 24hrs Laboratory Tests Test 07/23/18 17:50 07/23/18 21:30 07/24/18 02:37 07/24/18 04:26 Bedside Glucose 181 264 H 228 H Hemoglobin A1c 8.2 H Test 07/24/18 04:30 07/24/18 08:41 07/24/18 12:28 White Blood Count 5.7 Red Blood Count 3.06 L Hemoglobin 9.4 L Hematocrit 28.3 L Mean Corpuscular 92.5 Volume Mean Corpuscular 30.7 Hemoglobin Mean Corpuscular 33.2 Hemoglobin Concent Red Cell 13.2 Distribution Width Platelet Count 148 Mean Platelet Volume 10.9 H Immature 0.200 Granulocytes % Neutrophils % 58.5 Lymphocytes % 29.8 Monocytes % 10.0 Eosinophils % 1.1 Basophils % 0.4 Nucleated Red Blood 0.0 Cells % Immature 0.010 Granulocytes # Neutrophils # 3.3 Lymphocytes # 1.7 Monocytes # 0.6 Eosinophils # 0.1 Basophils # 0.0 Nucleated Red Blood 0.0 Cells # Sodium Level 138 Potassium Level 4.8 Chloride Level 105 Carbon Dioxide Level 27 Anion Gap 6 Blood Urea Nitrogen 36 H Creatinine 1.01 H Est Glomerular 56 L Filtrat Rate mL/min Glucose Level 177 Calcium Level 8.4 Bedside Glucose 143 201 Medications Medication Current Medications IV Flush (NS 3 ml) 3 ml PER PROTOCOL IV ; Start 07/22/18 at 13:30 Ketorolac Tromethamine (Toradol) 15 mg Q6H PRN IV .PAIN Last administered on 07/24/18 12:34; Admin Dose 15 MG; Start 07/22/18 at 13:30 Celecoxib (Celebrex) 100 mg BID PO Last administered on 07/24/18 08:16; Admin Dose 100 MG; Start 07/23/18 at 09:00 Gabapentin (Neurontin) 100 mg TID PO Last administered on 07/24/18 12:33; Ad min Dose 100 MG; Start 07/22/18 at 21:00 Pantoprazole (Protonix Tab) 40 mg DAILY@06 PO Last administered on 07/24/18 08:11; Admin Dose 40 MG; Start 07/24/18 at 06:00 Naloxone HCl (Narcan) 0.2 mg Q2M PRN IV .RESP RATE; Start 07/22/18 at 13:30 Aspirin (Halfprin) 81 mg BID PO Last administered on 07/24/18 08:16; Admin Dose 81 MG; Start 07/23/18 at 09:00 Acetaminophen/ Hydrocodone Bitart ([place] (5/325)) 2 tab Q6H PRN PO MODERATE PAIN LEVEL 4-6 Last administered on 07/24/18 14:08; Admin Dose 2 TAB; Start 07/22/18 at 13:30 Lisinopril (Zestril) 40 mg DAILY PO Last administered on 07/24/18 08:16; Admin Dose 40 MG; Start 07/23/18 at 09:00 Magnesium Oxide (Mag-Ox 400) 400 mg BID PO Last administered on 07/24/18 08:15; Admin Dose 400 MG; Start 07/22/18 at 21:00 Metformin HCl (Glucophage) 1,000 mg WITH BREAKFAST DINNE PO Last administered on 07/24/18 08:42; Admin Dose 1,000 MG; Start 07/22/18 at 17:55 Metoprolol Tartrate (Lopressor) 25 mg BID PO Last administered on 07/24/18 08:17; Admin Dose 25 MG; Start 07/22/18 at 21:00 Cholecalciferol (Vitamin D) 2,000 unit DAILY PO Last administered on 07/24/18 08:16; Admin Dose 2,000 UNIT; Start 07/23/18 at 09:00 Linagliptin (Tradjenta) 5 mg DAILY PO Last administered on 07/24/18at 08:42; Admin Dose 5 MG; Start 07/23/18 at 09:00 Diagnostic Test (Pha) (Accu-Chek) 1 ea AC MEALS AND BEDTIME XX Last administered on 07/23/18at 17:50; Admin Dose 1 EA; Start 07/22/18 at 17:25 Diagnostic Test (Pha) (Accu-Chek) 1 ea 02 XX ; Start 07/23/18 at 02:00 Insulin Glargine (Lantus) 16 units DAILY@2000 SC Last administered on 07/23/18at 21:38; Admin Dose 16 UNITS; Start 07/22/18 at 20:00 Insulin Aspart (Novolog Insulin Pen) NOVOLOG *MILD* ALGORITHM WITH MEALS BEDTIME SC Last administered on 07/24/18 12:36; Admin Dose 2 UNIT; Start 07/22/18 at 17:55 Hydralazine HCl (Apresoline) 10 mg Q6H PRN IV >160mmhg Last administered on 07/22/18at 14:18; Admin Dose 10 MG; Start 07/22/18 at 14:30 Miscellaneous Information 1 ea NOTE XX ; Start 07/22/18 at 14:30 Glucose (Glutose) 15 gm Q15M PRN PO DECREASED GLUCOSE; Start 07/22/18 at 14:30 Glucose (Glutose) 22.5 gm Q15M PRN PO DECREASED GLUCOSE; Start 07/22/18 at 14:30 Dextrose (D50w Syringe) 25 ml Q15M PRN IV DECREASED GLUCOSE; Start 07/22/18 at 14:30 Dextrose (D50w Syringe) 50 ml Q15M PRN IV DECREASED GLUCOSE; Start 07/22/18 at 14:30 Glucagon (Glucagen) 1 mg Q15M PRN IM DECREASED GLUCOSE; Start 07/22/18 at 14:30 Glucose (Glutose) 15 gm Q15M PRN BUCCAL DECREASED GLUCOSE; Start 07/22/18 at 14:30 Fish Oil (Fish Oil) 2,000 mg BID PO ; Start 07/23/18 at 09:00 Repaglinide (Prandin) 1 mg AC MEALS PO Last administered on 07/24/18at 12:33; Admin Dose 1 MG; Start 07/24/18 at 07:20 Diagnostic Test (Pha) (Accu-Chek) 1 ea AC MEALS AND BEDTIME XX ; Start 07/24/18 at 07:20 KEYON DAWKINS July 24, 2018 14:45
[2018-07-24] MEDS ORDERED: BISACODYL (EC) 5 MG TAB PO ONE (15:00)
[2018-07-24] MEDS: DOCUSATE SODIUM 100 MG CAP PO SCH ×2 (16:34→21:48)
[2018-07-24] MEDS ORDERED: GABA100C14 PO (16:51)
[2018-07-24] MEDS ORDERED: PANT40TA4 PO (16:51)
[2018-07-24] MEDS ORDERED: ASPI-1044 PO (16:51)
[2018-07-24] MEDS ORDERED: DOCU-144 PO (16:51)
[2018-07-24] MEDS ORDERED: HYDR-3601 PO (16:51)
[2018-07-24] MEDS ORDERED: LANT3I SC (16:51)
[2018-07-24] MEDS ORDERED: [UNRECOGNIZED DRUG - CODE] MC (16:53)
--- NOTE | 2018-07-24 16:53 | PDOCDIS ---
Discharge Instructions CONDITION [id number] Patient Condition: [id number] Stable HOME CARE INSTRUCTIONS: [id number] Diet Instructions: [id number] Activity Restrictions: [id number] Slowly Increase Activity Rest between Activity Avoid heavy lifting Do not Drive Do not operate Machinery Do not operate Power Tool Avoid Heavy Housework [id number] Bathing Restrictions: [id number] Shower FOLLOW UP/APPOINTMENTS Follow-up Plan Followup with your primary doctor within the next 1-2 weeks. If you don't have one please let someone know, we can give you resources that may help you pick one. You may call Dr Kehinde Zamarripa's office. he's accepting new patients Name, Degree: Kehinde Zamarripa MD Specialty: Internal Medicine Comments: Office Address: [address] [place] [address] Office Office You may also call your insurance company to assign one to you. Review your medication list with your nurse before leaving and if you need new prescriptions please let your nurse know. I may have made changes to your home medications or given you new prescriptions, please let your primary doctor know as well. Stay compliant with your medications and report any side effects to your PCP or pharmacist. Return to the ER if you have any concerns and cannot reach your doctors or call your insurance company, they usually have a nurse that can help you. KEYON DAWKINS July 24, 2018 16:53
[2018-07-24 19:10] VITALS: BP 148/67; PULSE 95; RESP 20
[2018-07-24] MEDS: INSULIN GLARGINE [LANTus] (100 UNITS/ML) SYG SC SCH (21:55)
[2018-07-25 01:57] VITALS: BP 159/79; PULSE 71; RESP 17
[2018-07-25] MEDS: HYDROCODONE/APAP (5/325) TAB PO PRN ×2 (01:57→08:53)
[2018-07-25] MEDS: KETOROLAC 15 MG INJ IV PRN (01:57)
[2018-07-25] MEDS: ACCU-CHEK XX SCH ×3 (02:00→07:20)
[2018-07-25] MEDS: PANTOPRAZOLE (EC) 40 MG TAB PO SCH (06:00)
[2018-07-25 07:38] VITALS: BP 175/77; PULSE 82; RESP 18
[2018-07-25] MEDS: INSULIN ASPART [NOVOLOG] 3 ML PEN SC SCH (07:50)
[2018-07-25] MEDS: DOCUSATE SODIUM 100 MG CAP PO SCH (08:42)
[2018-07-25] MEDS: ASPIRIN (EC) 81 MG TAB PO SCH (08:43)
[2018-07-25] MEDS: CELECOXIB 100 MG CAP PO SCH (08:43)
[2018-07-25] MEDS: LINAGLIPTIN 5 MG TABLET PO SCH (08:44)
[2018-07-25] MEDS: METOPROLOL 25 MG TAB PO SCH (08:44)
[2018-07-25] MEDS: CHOLECALCIFEROL 2,000 UNIT CAP PO SCH (08:44)
[2018-07-25] MEDS: GABAPENTIN 100 MG CAP PO SCH (08:44)
[2018-07-25] MEDS: MAGNESIUM OXIDE 400 MG TAB PO SCH (08:44)
[2018-07-25] MEDS: REPAGLINIDE 1 MG TAB PO SCH (08:45)
[2018-07-25] MEDS: LISINOPRIL 20 MG TAB PO SCH (08:45)
[2018-07-25] MEDS: FISH OIL 1,000 MG CAP PO SCH (08:48)
[2018-07-25] MEDS: metFORMIN 500 MG TAB PO SCH (08:53)
== END 2018-07-25 11:25 | disposition home health service (06) | DRG 470 ==
LOC: INTOOBSV 08:13 → REC 08:13 → MS1 14:48 → OBSVTOIN 07-23 10:00
PROVIDERS: ADMIT Orthopaedic Surgery Adult Reconstructive Orthopaedic Surgery; ATTEND Orthopaedic Surgery Adult Reconstructive Orthopaedic Surgery
PROC: 0SRD069 Replacement of Left Knee Joint with Oxidized Zirconium on Polyethylene Synthetic Substitute, Cemented, Open Approach (ICD-10-PCS; principal; 2018-07-22 10:30)
DX: M17.12 Unilateral primary osteoarthritis, left knee (principal); E66.01 Morbid (severe) obesity due to excess calories; Z68.38 Body mass index [BMI] 38.0-38.9, adult; I11.0 Hypertensive heart disease with heart failure; I50.9 Heart failure, unspecified; G47.33 Obstructive sleep apnea (adult) (pediatric); E11.9 Type 2 diabetes mellitus without complications
CPT/HCPCS: 73560; 80048; 82962; 83036; 85025; 88304; 88311; 97116; 97161; 97530; 99217; C1713; G0378; J0131; J0171; J0690; J0735; J1100; J1815; J1885; J2250; J2274; J2405; J2710; J2795; J3010; J3370; J7120

== ENCOUNTER 2018-08-21 19:18 | Emergency (ER) | payer OTHER ==
[~2018-08-21] VITALS: Ht 152.4 cm; Wt 103.0 kg
[~2018-08-21 19:18] MED LIST changes: -ACETAMINOPHEN 500 MG TAB PO ONE; +ASPI-1044 PO; -CEFAZOLIN 1 GM INJ ONE; +CLON-379 PO; -DESFLURANE 15 MIN ONE; -DEXAMETHASONE 4 MG/ML 1 ML INJ IV ONE; -DEXAMETHASONE 4 MG/ML 5 ML INJ ONE; +DOCU-144 PO; +ERGO2000 PO; -FENTAnyl 50 MCG/ML VIAL ONE; +GABA100C14 PO; +GLIM4TAB PO; -GLYCOPYRROLATE 0.4 MG INJ ONE; -HIP PAIN COCKTAIL VANCO INJ SCH; +HYDR-3601 PO; +HYDR-3672 PO; +ICOS1CAP PO; -LACTATED RINGER'S 1,000 ML IV SCH; -LANSOPRAZOLE 30 MG CAP PO ONE; +LANT3I SC; +LISI40TA3 PO; +MAGN400T27 PO; +METF100010 PO; +METO-448 PO; -MIDAZOLAM 1 MG/ML 2 ML INJ ONE; -NEOSTIGMINE 3 MG/3 ML SYRINGE ONE; -ONDANSETRON 4 MG INJ IV ONE; -ONDANSETRON 4 MG INJ ONE; +PANT40TA4 PO; -PROPOFOL 20 ML ONE; -ROCURONIUM 50 MG INJ ONE; -ROPIVACAINE 0.5 % 30 ML VIAL ONE; +SITA100T11 PO; -TRANEXAMIC ACID 1 GM/100 ML (PMX) ONE; -TRANEXAMIC ACID 1GM/100ML(PMX) 100 ML INTRA-OP X1 IVPB ONE; -TRANEXAMIC ACID 1GM/100ML(PMX) 100 ML PRE-OP X1 IVPB ONE; -VANCOMYCIN 1 GM (PMX) 250 ML IVPB ONE; +[UNRECOGNIZED DRUG - CODE] MC; -morphine SULFATE/PF (10 MG/10 ML) INJ ONE; -oxyCODONE (CR) 10 MG TAB [oxyCONTIN] PO ONE
[2018-08-21 19:27] VITALS: BP 144/68; PULSE 91; RESP 18; Ht 152.4 cm; Wt 103.0 kg
[2018-08-21] MEDS ORDERED: ONDANSETRON (ODT) 4 MG TAB ODT STA (19:49)
[2018-08-21] MEDS ORDERED: HYDR-4011 PO (19:53)
[2018-08-21] MEDS ORDERED: IBUP800T48 PO (19:53)
[2018-08-21] MEDS ORDERED: HYDROCODONE/APAP (10/325) TAB PO ONE (20:00)
--- NOTE | 2018-08-21 20:07 | ERD ---
ER Documentation Chief Complaint Chief Complaint MED REFILL FOR RECENT SURGERY HPI 58-year-old female presenting for med refill. She had any replacement 1 month ago and she has run out of pain medication. She states her surgeon would not fill her medication. He had PT earlier today and has had pain ever since. D enies any fevers. Denies numbness or tingling. Medical history is diabetes and hypertension with herniated disc causing sciatica bilaterally. Allergy to penicillin. Surgical history is right and left knee replacement appendectomy, cholecystectomy and blepharectomy. ROS All systems reviewed and are negative except as per history of present illness. Medications Home Meds Active Scripts Ibuprofen* (Motrin*) 800 Mg Tab, 800 MG PO Q6, #30 TAB Prov:YASMANI HERNÁNDEZ PA-C 08/21/18 Hydrocodone/Acetaminophen (Dubberly 5-325 Tablet) 1 Each Tablet, 1 TAB PO Q6H PRN for PAIN, #10 TAB Prov:YASMANI HERNÁNDEZ PA-C 08/21/18 Syringe & Needle,Insulin,1 Ml (ADVOCATE SYRINGES) 1 Each Disp.syrin, EACH MC DAILY, #30 Prov:KEYON DAWKINS 07/24/18 Insulin Glargine* (Lantus*) 100 Unit/Ml Soln, 10 UNIT SC DAILY, #3 VIAL Prov:KEYON DAWKINS 07/24/18 Pantoprazole* (Pantoprazole*) 40 Mg Tablet.dr, 40 MG PO DAILY@06, #30 TAB Prov:KEYON DAWKINS 07/24/18 Docusate Sodium* (Colace*) 100 Mg Capsule, 200 MG PO BID, #60 CAP Prov:KEYON DAWKINS 07/24/18 Hydrocodone Bit-Acetaminophen (Hydrocodone Bit-APAP) 5-325MG Tablet, 1 TAB PO Q6H PRN for MODERATE PAIN LEVEL 4-6, #21 TAB Prov:KEYON DAWKINS 07/24/18 Gabapentin* (Gabapentin*) 100 Mg Capsule, 100 MG PO TID, #90 CAP Prov:KEYON DAWKINS 07/24/18 Aspirin Delayed Release (Aspirin Delayed Release) 81 Mg Tablet., 81 MG PO BID for 84 Days, #42 TAB Prov:KEYON DAWKINS 07/24/18 Reported Medications Magnesium Oxide* (Mag-Oxide*) 400 Mg Tablet, 400 MG PO BID, TAB 07/22/18 Hydralazine Hcl* (Hydralazine Hcl*) 50 Mg Tab, 50 MG PO BID PRN for BLOOD PRESSURE SUPPORT, #60 TAB 07/22/18 Ergocalciferol (Vitamin D2) (VITAMIN D2) 2,000 Unit Tablet, 2000 UNIT PO DAILY, TAB 07/22/18 Icosapent Ethyl (VASCEPA) 1 Gm Capsule, 2 GM PO BID, CAP 07/22/18 Clonidine Hcl* (Clonidine Hcl*) 0.1 Mg Tab, 0.1 MG PO DAILY PRN for BLOOD PRESSURE SUPPORT, TAB 07/22/18 Sitagliptin* (Januvia*) 100 Mg Tablet, 100 MG PO DAILY, #30 TAB 07/22/18 Glimepiride* (Glimepiride*) 4 Mg Tablet, 4 MG PO WITH BREAKFAST DINNE, TAB 07/22/18 Metoprolol Tartrate* (Lopressor*) 25 Mg Tab, 25 MG PO BID, #60 TAB 07/22/18 Metformin Hcl* (Metformin Hcl*) 1,000 Mg Tablet, 1000 MG PO WITH BREAKFAST DINNE, #60 TAB 07/22/18 Lisinopril* (Lisinopril*) 40 Mg Tablet, 40 MG PO DAILY, #30 TAB 07/22/18 Allergies Allergies: Coded Allergies: Penicillins (Verified Allergy, Mild, RASH, 07/22/18) PMhx/Soc History of Surgery: Yes (appendectomy,cholecystectomy,eye surgery) Anesthesia Reaction: No Hx Neurological Disorder: No Hx Respiratory Disorders: Yes (SLEEP APNEA) Hx Cardiac Disorders: Yes (HTN) Hx Psychiatric Problems: No Hx Miscellaneous Medical Probl: Yes (HTN, DM, morbid obesity, obstructive sleep apnea) Hx Alcohol Use: No Hx Substance Use: No Hx Tobacco Use: No Smoking Status: Never smoker FmHx Family History: No diabetes, No coronary disease, No other Physical Exam Vitals Vital Signs Date Temp Pulse Resp B/P (MAP) Pulse Ox O2 O2 Flow FiO2 Time Delivery Rate 08/21/18 98.7 91 18 144/68 99 19:27 (93) Physical Exam GENERAL: The patient is well-appearing, well-nourished, in no acute distress CHEST: Clear to auscultation bilaterally. There are no rales, wheezes or rhonchi. HEART: Regular rate and rhythm. No murmurs, clicks, rubs or gallops EXTREMITIES: Equal pulses bilaterally. There is no peripheral clubbing, cyanosis or edema. No focal swelling or erythema. Full range of motion. Grossly neurovascularly intact. NEUROLOGIC: Alert and oriented. Cranial nerves II through XII intact. Motor strength in all 4 extremities with 5 out of 5 strength. Sensation grossly intact. Normal speech and gait. SKIN: left knee surgical scar seen Results 24 hrs Current Medications Medications Dose Sig/Morales Start Time Status Last (Trade) Ordered Route PRN Stop Time Admin Dose Reason Admin 1 tab ONCE ONCE 08/21/18 DC 08/21/18 Acetaminophen PO 20:00 08/21/18 19:55 / 20:01 Hydrocodone Bitart (Dub[place] (10/325)) Ondansetron 4 mg ONCE STAT 08/21/18 DC 08/21/18 HCl (Zofran ODT 19:49 08/21/18 19:55 Odt) 19:51 Procedures/MDM ER course: Dubberly given ED. MDM: 58-year-old female presenting with knee pain. Patient's findings are consistent with postoperative pain. I do not feel patient requires blood work or imaging. Patient will be discharged with supportive medications. Patient is told symptoms change or worsen to return immediately to the ER. All questions answered at discharge Departure Diagnosis: Primary Impression: Post-op pain Condition: Stable Patient Instructions: Pain Management Additional Instructions: FOLLOW UP WITH YOUR PRIMARY CARE PHYSICIAN TOMORROW.Return to this facility if you are not improving as expected. YASMANI HERNÁNDEZ PA-C Aug 21, 2018 20:07
== END 2018-08-21 20:54 | disposition home or self-care (01) ==
LOC: FTE 19:18
DX: G89.18 Other acute postprocedural pain (principal); I10 Essential (primary) hypertension; E11.9 Type 2 diabetes mellitus without complications; E66.01 Morbid (severe) obesity due to excess calories; Z79.4 Long term (current) use of insulin; Z79.82 Long term (current) use of aspirin
CPT/HCPCS: Z7502; Z7610; 99283

== ENCOUNTER 2018-09-25 20:40 | Emergency (ER) | payer OTHER ==
[~2018-09-25] VITALS: Ht 154.9 cm; Wt 102.6 kg
[~2018-09-25 20:40] MED LIST changes: +HYDR-4011 PO; +IBUP800T48 PO
[2018-09-25 20:44] VITALS: Ht 154.9 cm; Wt 102.6 kg
[2018-09-26] MEDS ORDERED: KETOROLAC 30 MG INJ IM STA (00:10)
[2018-09-26] MEDS ORDERED: DEXAMETHASONE 10 MG/ML 1 ML INJ IM ONE (00:30)
[2018-09-26] MEDS ORDERED: NAPR-985 PO (00:41)
[2018-09-26 00:53] VITALS: BP 182/81; PULSE 83; RESP 18
--- NOTE | 2018-09-26 04:14 | ERD ---
ER Documentation Chief Complaint Chief Complaint lower back pain radiating to right leg HPI This is a 58-year-old female with history of sciatica and recent left total knee replacement who presents to the ED complaining of exacerbation of her sciatica type pains. Patient reports right lower lumbar pain that is sharp and radiating down towards her right lower extremity. She states she has been nonambulatory since her surgery and thinks this may have exacerbated or flared up her sciatica. She states his symptoms are very similar to her previous sciatica pains. She has been taking tramadol at home with mild relief. No saddle anesthesia, no loss of bowel or bladder control. No recent trauma. No fevers or chills. ROS All systems reviewed and are negative except as per history of present illness. Medications Home Meds Active Scripts Naproxen* (Naprosyn*) 500 Mg Tablet, 500 MG PO BID PRN for PAIN AND/OR INFLAMMATION, #30 TAB Prov:ALBIN CANDELARIO PA-C 09/26/18 Ibuprofen* (Motrin*) 800 Mg Tab, 800 MG PO Q6, #30 TAB Prov:YASMANI HERNÁNDEZ PA-C 08/21/18 Hydrocodone/Acetaminophen ([place] 5-325 Tablet) 1 Each Tablet, 1 TAB PO Q6H PRN for PAIN, #10 TAB Prov:YASMANI HERNÁNDEZ PA-C 08/21/18 Syringe & Needle,Insulin,1 Ml (ADVOCATE SYRINGES) 1 Each Disp.syrin, EACH MC DAILY, #30 Prov:KEYON DAWKINS 07/24/18 Insulin Glargine* (Lantus*) 100 Unit/Ml Soln, 10 UNIT SC DAILY, #3 VIAL Prov:KEYON DAWKINS. 07/24/18 Pantoprazole* (Pantoprazole*) 40 Mg Tablet.dr, 40 MG PO DAILY@06, #30 TAB Prov:KEYON DAWKINS. 07/24/18 Docusate Sodium* (Colace*) 100 Mg Capsule, 200 MG PO BID, #60 CAP Prov:KEYON DAWKINS. 07/24/18 Hydrocodone Bit-Acetaminophen (Hydrocodone Bit-APAP) 5-325MG Tablet, 1 TAB PO Q6H PRN for MODERATE PAIN LEVEL 4-6, #21 TAB Prov:KEYON DAWKINS. 07/24/18 Gabapentin* (Gabapentin*) 100 Mg Capsule, 100 MG PO TID, #90 CAP Prov:KEYON DAWKINS. 07/24/18 Aspirin Delayed Release (Aspirin Delayed Release) 81 Mg Tablet.dr, 81 MG PO BID for 84 Days, #42 TAB Prov:KEYON DAWKINS . 07/24/18 Reported Medications Magnesium Oxide* (Mag-Oxide*) 400 Mg Tablet, 400 MG PO BID, TAB 07/22/18 Hydralazine Hcl* (Hydralazine Hcl*) 50 Mg Tab, 50 MG PO BID PRN for BLOOD PRESSURE SUPPORT, #60 TAB 07/22/18 Ergocalciferol (Vitamin D2) (VITAMIN D2) 2,000 Unit Tablet, 2000 UNIT PO DAILY, TAB 07/22/18 Icosapent Ethyl (VASCEPA) 1 Gm Capsule, 2 GM PO BID, CAP 07/22/18 Clonidine Hcl* (Clonidine Hcl*) 0.1 Mg Tab, 0.1 MG PO DAILY PRN for BLOOD PRESSURE SUPPORT, TAB 07/22/18 Sitagliptin* (Januvia*) 100 Mg Tablet, 100 MG PO DAILY, #30 TAB 07/22/18 Glimepiride* (Glimepiride*) 4 Mg Tablet, 4 MG PO WITH BREAKFAST DINNE, TAB 07/22/18 Metoprolol Tartrate* (Lopressor*) 25 Mg Tab, 25 MG PO BID, #60 TAB 07/22/18 Metformin Hcl* (Metformin Hcl*) 1,000 Mg Tablet, 1000 MG PO WITH BREAKFAST DINNE, #60 TAB 07/22/18 Lisinopril* (Lisinopril*) 40 Mg Tablet, 40 MG PO DAILY, #30 TAB 07/22/18 Allergies Allergies: Coded Allergies: Penicillins (Verified Allergy, Mild, RASH, 07/22/18) PMhx/Soc History of Surgery: Yes (appendectomy,cholecystectomy,eye surgery) Anesthesia Reaction: No Hx Neurological Disorder: No Hx Respiratory Disorders: Yes (SLEEP APNEA) Hx Cardiac Disorders: Yes (HTN) Hx Psychiatric Problems: No Hx Miscellaneous Medical Probl: Yes (HTN, DM, morbid obesity, obstructive sleep apnea) Hx Alcohol Use: No Hx Substance Use: No Hx Tobacco Use: No Smoking Status: Never smoker FmHx Family History: No diabetes Physical Exam Vitals Vital Signs Date Temp Pulse Resp B/P (MAP) Pulse Ox O2 O2 Flow FiO2 Time Delivery Rate 09/26/18 97.8 83 18 182/81 96 Room Air 00:53 (114) 09/25/18 97.7 83 18 190/93 99 20:44 (125) Physical Exam Const: No acute distress Head: Atraumatic Eyes: Normal Conjunctiva ENT: Normal External Ears, Nose and Mouth. Neck: Full range of motion. No meningismus. Skin: No petechiae or rashes Back: + Left paralumbar tenderness palpation, no midline tenderness, positive straight leg raise on the left. Bilateral lower extremity 5 out of 5, sensation grossly intact. DP/PT pulses 2+. Ext: + Well-healing vertical wounds to her bilateral knees Neur: Awake and alert Psych: Normal Mood and Affect Results 24 hrs Current Medications Medications Dose Sig/Morales Start Time Status Last (Trade) Ordered Route PRN Stop Time Admin Dose Reason Admin 10 mg ONCE ONCE 09/26/18 DC 09/26/18 Dexamethasone IM 00:30 00:18 (Decadron) 09/26/18 00:31 Ketorolac 30 mg ONCE STAT 09/26/18 DC 09/26/18 Tromethamine IM 00:10 00:19 (Toradol) 09/26/18 00:12 Procedures/MDM ED COURSE: The patient was given Decadron IM, Toradol IM The medication was well tolerated and the patient had market improvement in symptoms. The patient remained stable throughout ED course. MEDICAL DECISION MAKIN-year-old female with history of sciatica presents with signs and symptoms consistent with a flareup of her sciatica. There has been no new trauma and no focal neurological deficits on physical exam. Advanced imaging was deferred as symptoms are very similar to her previous sciatica pains. She felt much better after IM Decadron and Toradol. I have low suspicion for epidural abscess, cauda equina, cord compression, spinal tumor/mass or compression fracture. She was discharged home with prescription for naproxen and told to follow-up with her orthopedist for further evaluation and treatment. Patient has tramadol at home. She does not need any further pain medications. Strict return precautions were discussed. PRESCRIPTIONS: Naproxen SPECIALIST FOLLOW UP RECOMMENDED: orthopedist Patient has been advised to follow up with primary care in 1-2 days. Blood Pressure Assessment: Patient's blood pressure was elevated (>120/80) but appears stable without evidence of hypertension emergency or urgency. The patient was counseled about the risks of hypertension and urged to pursue outpatient monitoring and therapy within a week with their primary care physi coco. Departure Diagnosis: Primary Impression: Sciatica Laterality: right Qualified Codes: M54.31 - Sciatica, right side Condition: Stable Patient Instructions: Back Pain W/ Sciatica Additional Instructions: Call your primary care doctor TOMORROW for an appointment during the next 2-4 days and bring all the information and medications prescribed. If the symptoms get worse and your provider is unavailable, return to the Emergency Department immediately. ALBIN CANDELARIO PA-C Sep 26, 2018 04:14
== END 2018-09-26 00:55 | disposition home or self-care (01) ==
LOC: FTE 20:40
DX: M54.31 Sciatica, right side (principal); I10 Essential (primary) hypertension; E11.9 Type 2 diabetes mellitus without complications; E66.01 Morbid (severe) obesity due to excess calories; Z68.41 Body mass index [BMI] 40.0-44.9, adult; Z79.4 Long term (current) use of insulin; Z79.82 Long term (current) use of aspirin; Z96.652 Presence of left artificial knee joint
CPT/HCPCS: 96372; J1100; J1885; Z7502

== ENCOUNTER 2018-10-09 15:15 | Emergency (ER) | payer OTHER ==
[~2018-10-09] VITALS: Ht 157.5 cm; Wt 103.4 kg
[~2018-10-09 15:15] MED LIST changes: +NAPR-985 PO; +TRAM50TA PO
[2018-10-09 15:53] VITALS: Ht 157.5 cm; Wt 103.4 kg
[2018-10-09] MEDS ORDERED: SOD CHLORIDE 0.9% 500 ML IV STA (16:30)
[2018-10-09] MEDS ORDERED: ASPIRIN 325 MG TAB PO STA (16:30)
--- NOTE | 2018-10-09 16:33 | ERD ---
ER Documentation Chief Complaint Chief Complaint INTERMITTENT EPISODES OF PALAPTATIONS, SOB, DIAPHORESIS STARTING TODAY HPI Patient with history of diabetes and hypertension. Was urinating on the toilet when she suddenly felt very diaphoretic and weak. No chest pain. No infectious symptoms. No headache no nausea or vomiting. No exertional symptoms. Denies diarrhea or dysuria. Feels a bit better now but still having mild palpitations. Has not had this before. Has had increased stress for the past [place]. Does not take medication for thyroid. ROS All systems reviewed and are negative except as per history of present illness. Medications Home Meds Active Scripts Naproxen* (Naprosyn*) 500 Mg Tablet, 500 MG PO BID PRN for PAIN AND/OR INFLAMMATION, #30 TAB Prov:ALBIN CANDELARIO PA-C 09/26/18 Pantoprazole* (Pantoprazole*) 40 Mg Tablet., 40 MG PO DAILY@06, #30 TAB Prov:KEYON DAWKINS 07/24/18 Aspirin Delayed Release (Aspirin Delayed Release) 81 Mg Tablet., 81 MG PO BID for 84 Days, #42 TAB Prov:KEYON DAWKINS. 07/24/18 Reported Medications Tramadol Hcl* (Ultram*) 50 Mg Tablet, 50 MG PO Q6H PRN for PAIN, TAB 10/09/18 Gabapentin* (Gabapentin*) 100 Mg Capsule, 100 MG PO QHS, #90 CAP 10/09/18 Magnesium Oxide* (Mag-Oxide*) 400 Mg Tablet, 400 MG PO BID, TAB 07/22/18 Hydralazine Hcl* (Hydralazine Hcl*) 50 Mg Tab, 50 MG PO BID PRN for BLOOD PRESSURE SUPPORT, #60 TAB 07/22/18 Ergocalciferol (Vitamin D2) (VITAMIN D2) 2,000 Unit Tablet, 2000 UNIT PO DAILY, TAB 07/22/18 Icosapent Ethyl (VASCEPA) 1 Gm Capsule, 2 GM PO BID, CAP 07/22/18 Clonidine Hcl* (Clonidine Hcl*) 0.1 Mg Tab, 0.1 MG PO DAILY PRN for BLOOD PRESSURE SUPPORT, TAB 07/22/18 Sitagliptin* (Januvia*) 100 Mg Tablet, 100 MG PO DAILY, #30 TAB 07/22/18 Glimepiride* (Glimepiride*) 4 Mg Tablet, 4 MG PO WITH BREAKFAST DINNE, TAB 07/22/18 Metoprolol Tartrate* (Lopressor*) 25 Mg Tab, 25 MG PO BID, #60 TAB 07/22/18 Metformin Hcl* (Metformin Hcl*) 1,000 Mg Tablet, 1000 MG PO WITH BREAKFAST DINNE, #60 TAB 07/22/18 Lisinopril* (Lisinopril*) 40 Mg Tablet, 40 MG PO DAILY, #30 TAB 07/22/18 Discontinued Scripts Ibuprofen* (Motrin*) 800 Mg Tab, 800 MG PO Q6, #30 TAB Prov:YASMANI HERNÁNDEZ PA-C 08/21/18 Hydrocodone/Acetaminophen (Carbon 5-325 Tablet) 1 Each Tablet, 1 TAB PO Q6H PRN for PAIN, #10 TAB Prov:YASMANI HERNÁNDEZ PA-C 08/21/18 Syringe & Needle,Insulin,1 Ml (ADVOCATE SYRINGES) 1 Each Disp.syrin, EACH MC DAILY, #30 Prov:KEYON DAWKINS. 07/24/18 Insulin Glargine* (Lantus*) 100 Unit/Ml Soln, 10 UNIT SC DAILY, #3 VIAL Prov:KEYON DAWKINS. 07/24/18 Docusate Sodium* (Colace*) 100 Mg Capsule, 200 MG PO BID, #60 CAP Prov:KEYON DAWKINS. 07/24/18 Hydrocodone Bit-Acetaminophen (Hydrocodone Bit-APAP) 5-325MG Tablet, 1 TAB PO Q6H PRN for MODERATE PAIN LEVEL 4-6, #21 TAB Prov:KEYON DAWKINS. 07/24/18 Gabapentin* (Gabapentin*) 100 Mg Capsule, 100 MG PO TID, #90 CAP Prov:KEYON DAWKINS. 07/24/18 Allergies Allergies: Coded Allergies: Penicillins (Verified Allergy, Mild, RASH, 10/09/18) PMhx/Soc History of Surgery: Yes (appendectomy,cholecystectomy,eye surgery, RT KNEE REPLACEMENT) Anesthesia Reaction: No Hx Neurological Disorder: No Hx Respiratory Disorders: Yes (SLEEP APNEA) Hx Cardiac Disorders: Yes (HTN) Hx Psychiatric Problems: No Hx Miscellaneous Medical Probl: No Hx Alcohol Use: No Hx Substance Use: No Hx Tobacco Use: No Smoking Status: Never smoker Physical Exam Vitals Vital Signs Date Temp Pulse Resp B/P (MAP) Pulse Ox O2 O2 Flow FiO2 Time Delivery Rate 10/09/18 98.5 84 16 150/88 99 15:53 (108) 10/09/18 Nasal 2 15:50 Cannula Physical Exam Const: No acute distress Head: Atraumatic Eyes: Normal Conjunctiva ENT: Normal External Ears, Nose and Mouth. Neck: Full range of motion. No meningismus. Resp: Clear to auscultation bilaterally Cardio: Regular rate and rhythm, no murmurs Abd: Soft, non tender, non distended. Normal bowel sounds Skin: No petechiae or rashes Back: No midline or flank tenderness Ext: No cyanosis, or edema Neur: Awake and alert Psych: Normal Mood and Affect Result Diagram: 10/09/18 1551 10/09/18 1551 Results 24 hrs Laboratory Tests Test 10/09/18 15:50 10/09/18 15:51 Bedside Glucose 199 mg/dL White Blood Count 6.3 10^3/ul Red Blood Count 4.09 10^6/ul Hemoglobin 12.1 g/dl Hematocrit 37.8 % Mean Corpuscular Volume 92.4 fl Mean Corpuscular Hemoglobin 29.6 pg Mean Corpuscular Hemoglobin Concent 32.0 g/dl Red Cell Distribution Width 13.5 % Platelet Count 200 10^3/UL Mean Platelet Volume 10.7 fl Immature Granulocytes % 0.300 % Neutrophils % 65.5 % Lymphocytes % 22.2 % Monocytes % 7.6 % Eosinophils % 3.9 % Basophils % 0.5 % Nucleated Red Blood Cells % 0.0 /100WBC Immature Granulocytes # 0.020 10^3/ul Neutrophils # 4.2 10^3/ul Lymphocytes # 1.4 10^3/ul Monocytes # 0.5 10^3/ul Eosinophils # 0.3 10^3/ul Basophils # 0.0 10^3/ul Nucleated Red Blood Cells # 0.0 10^3/ul Sodium Level 146 mmol/L Potassium Level 3.8 mmol/L Chloride Level 108 mmol/L Carbon Dioxide Level 30 mmol/L Anion Gap 8 Blood Urea Nitrogen 20 mg/dl Creatinine 1.11 mg/dl Est Glomerular Filtrat Rate mL/min 50 mL/min Glucose Level 191 mg/dl Calcium Level 9.5 mg/dl Troponin I < 0.012 ng/ml Thyroid Stimulating Hormone (TSH) 2.180 MIU/L Current Medications Medications Dose Sig/Morales Start Time Status Last (Trade) Ordered Route PRN Stop Time Admin Dose Reason Admin Sodium 500 ml @ Q1H STAT 10/09/18 DC 10/09/18 Chloride 500 mls/hr IV 16:30 16:47 10/09/18 17:29 Aspirin 325 mg ONCE STAT 10/09/18 DC 10/09/18 (Aspirin) PO 16:30 16:47 10/09/18 16:32 Procedures/MDM Chest X-ray 1V Interpreted by me: Soft Tissue: No acute abnormalities Bones: No acute abnormalities Mediastinum/Cardiac Silhouette/Lungs: No acute abnormalities Impression: Normal Chest X-Ray ECG Time: 1536 Ventricular Rate: 83 Rhythm: normal sinus rhythm. ST Segments: without evidence of depressions or elevations Intervals: without evidence of AV block, new BBB, long QT, [place] No evidence of delta wave. Patient presents with presyncope prior to arrival. likely vasovagal in etiology given history and exam. Patient currently at baseline mental status. No chest pain with low s/f dis section or ACS. No hypoxia or tachypnea with no risk factors for PE. No overt e/o malignant arrhythmia on serial EKG. Patient not . PO challenged. Patient's labs including troponin and TSH were within normal limits. Cautious return precautions discussed w/ full understanding. Prompt follow up with primary care physician discussed for further workup as needed. Departure Diagnosis: Primary Impression: Pre-syncope Condition: Stable Referrals: [facility] KEVIN HINOJOSA MD Oct 09, 2018 16:33
[2018-10-09 20:14] VITALS: BP 178/92; PULSE 82; RESP 18
== END 2018-10-09 20:14 | disposition home or self-care (01) ==
LOC: E/R 15:15
DX: R55 Syncope and collapse (principal); E11.9 Type 2 diabetes mellitus without complications; I10 Essential (primary) hypertension; Z79.4 Long term (current) use of insulin; Z79.82 Long term (current) use of aspirin; Z96.651 Presence of right artificial knee joint
CPT/HCPCS: 36415; 71045; 80048; 82962; 84443; 84484; 85025; 93005; 96360; J7040; Z7502; Z7610